=== PATIENT | female | born 1970 | race Two or more races ===

== ENCOUNTER 2020-08-21 10:47 | Day surgery (SDC) | payer OTHER ==
[~2020-08-21 10:47] MED LIST: BUSPAR PO; CLONAZEPAM2 MG PO; COZAAR50 MG PO; DESYREL PO; FORTAMET500 MG PO; LIPITOR20 MG PO; PROZAC PO; SYNTHROID125 MCG PO
== END 2020-08-21 21:55 | disposition home or self-care (01) ==
LOC: CIR.AMB 10:47
PROVIDERS: ATTEND Colon & Rectal Surgery
DX: R15.9 Full incontinence of feces (principal); N82.3 Fistula of vagina to large intestine; Z20.828 Contact with and (suspected) exposure to other viral communicable diseases; N81.6 Rectocele